=== PATIENT | male | born 1970 | race Two or more races ===

== ENCOUNTER 2019-03-13 09:07 | Emergency (ER) | payer BC ==
[~2019-03-13] VITALS: Ht 167.6 cm; Wt 86.0 kg
[2019-03-13] MEDS ORDERED: KETOROLAC 60MG/2ML VIAL IM ONE (10:30)
[2019-03-13 10:35] VITALS: BP 136/92
== END 2019-03-13 10:38 | disposition left against medical advice (07) ==
LOC: ER 09:07
DX: M25.561 Pain in right knee (principal)
CPT/HCPCS: 99281